=== PATIENT | female | born 1950 | race Caucasian/White ===

== ENCOUNTER 2017-09-22 14:23 | Outpatient (CLI) | payer MEDICARE, OTHER ==
[2017-09-22 13:51] LABS: BASOPHILS % (AUTO) 0.9 %; EOSINOPHILS # (AUTO) 0.1 10^3/uL (0.0-0.7); EOSINOPHILS % (AUTO) 3.4 %; HCT - HEMATOCRIT 41.1 % (37.0-47.0); HGB - HEMOGLOBIN 13.8 g/dL (12.0-16.0); LYMPHOCYTES # (AUTO) 0.9 10^3/uL (1.5-3.5); MEAN CORPUSCULAR HEMOGLOBIN 30.8 pg (27.0-31.0); MEAN CORPUSCULAR HGB CONC 33.4 g/dL (32.0-36.0); MEAN CORPUSCULAR VOLUME 92.1 fL (81.0-99.0); MEAN PLATELET VOLUME 8.8 fL (7.9-10.8); MONOCYTES # (AUTO) 0.3 10^3/uL (0.0-1.0); MONOCYTES % (AUTO) 9.1 %; NEUTROPHILS # (AUTO) 2.1 10^3/uL (1.5-6.6); NEUTROPHILS % (AUTO) 60.6 %; RED BLOOD COUNT 4.47 10^6/uL (4.20-5.40); RED CELL DISTRIBUTION WIDTH 13.5 % (12.0-15.0); UNCORRECTED WHITE BLOOD COUNT 3.4 x10^3/uL; WHITE BLOOD COUNT 3.4 x10^3/uL (4.8-10.8)
[2017-09-22 14:08] LABS: ALBUMIN/GLOBULIN RATIO 1.7 (1.0-2.2); BILIRUBIN,TOTAL 0.8 mg/dL (0.2-1.0); BUN - BLOOD UREA NITROGEN 20 mg/dL (6-20); CALCIUM 9.5 mg/dL (8.5-10.3); CARBON DIOXIDE - CO2 28 mmol/L (21-32); CHLORIDE 101 mmol/L (101-111); CHOL/HDL RATIO 2.5 (<4.4); CHOLESTEROL 240 mg/dL; CREATININE 0.6 mg/dL (0.4-1.0); GFR - MDRD 100 (>89); GLUCOSE 75 mg/dL (70-100); HDL CHOLESTEROL 95 mg/dL; LDL/HDL RATIO 1.4 (<4.4); POTASSIUM 3.8 mmol/L (3.5-5.0); SODIUM 138 mmol/L (135-145); TOTAL PROTEIN 6.8 g/dL (6.7-8.2); TRIGLYCERIDES 65 mg/dL; VLDL CHOLESTEROL 13 mg/dL
== END 2017-09-22 14:24 | disposition home or self-care (01) ==
LOC: LAB.R 14:23
PROVIDERS: ATTEND Physician Assistant Medical
DX: M15.9 Polyosteoarthritis, unspecified (principal); G47.00 Insomnia, unspecified; Z79.899 Other long term (current) drug therapy; M81.0 Age-related osteoporosis without current pathological fracture; Z72.89 Other problems related to lifestyle; Z11.59 Encounter for screening for other viral diseases
CPT/HCPCS: 80053; 80061; 82306; 84443; 85025; 86803

== ENCOUNTER 2017-09-29 11:22 | Outpatient (CLI) | payer MEDICARE, OTHER ==
--- NOTE | 2017-09-29 14:42 | XRAY Report ---
EXAM: CERVICAL SPINE RADIOGRAPHY EXAM DATE: 09/29/2017 12:03 PM. CLINICAL HISTORY: Cervical spasm. Pain upon walking and turning head left since March 2017. COMPARISONS: None. TECHNIQUE: 3 views. FINDINGS: Alignment: Slight accentuation of the lower cervical lordosis. Anterolisthesis of C3 on C4 measuring 1 mm and C6 on C7 measuring 1 mm. Dextroscoliosis of the mid cervical spine and levoscoliosis of the upper thoracic spine. Bones: No acute fracture or bony lesion. Only small portions of the odontoid is visualized and appear s unremarkable. Degenerative osteophyte formation. Disks: Mild disk space narrowing at C2-C3 and C3-C4 with mild to moderate narrowing at C4-C5, C5-C6, C6-C7. Facets: Moderate to marked multilevel cervical facet arthropathy. Soft Tissues: Normal. No prevertebral soft tissue swelling. The visualized lung apices are clear. IMPRESSION: 1. Mild to moderate intervertebral disk degenerative changes of the cervical spine at C4-C5, C5-C6 an d C6-C7. 2. Moderate to marked cervical facet arthropathy. 3. Anterolisthesis of C3 on C4 and C6 on C7, likely due to facet arthropathy. [facility] Referring Provider Line: [phone] SITE ID: [id number]
== END 2017-09-29 11:23 | disposition home or self-care (01) ==
LOC: DI 11:22
PROVIDERS: ATTEND Physician Assistant Medical
DX: M50.321 Other cervical disc degeneration at C4-C5 level (principal); M43.12 Spondylolisthesis, cervical region; M47.892 Other spondylosis, cervical region
CPT/HCPCS: 72040

== ENCOUNTER 2017-10-13 11:01 | Day surgery (SDC) | payer MEDICARE, OTHER ==
[2017-10-13] MEDS ORDERED: LACTATED RINGERS 1,000 ML IV ONE ×2 (11:30→14:33)
[2017-10-13] MEDS ORDERED: fentaNYL 100 MCG/2 ML VIAL IVP ONE (13:39)
[2017-10-13] MEDS ORDERED: GLUCAGON 1 MG/ML VIAL IM ONE (13:39)
[2017-10-13] MEDS ORDERED: MIDAZOLAM 2 MG/2 ML VIAL IVP ONE (13:39)
[2017-10-13 15:06] VITALS: BP 132/57
== END 2017-10-13 11:02 | disposition home or self-care (01) ==
LOC: SDS 11:01
PROVIDERS: ATTEND Surgery
PROC: 0DJD8ZZ Inspection of Lower Intestinal Tract, Via Natural or Artificial Opening Endoscopic (ICD-10-PCS; principal; 2017-10-13 12:15)
DX: Z12.11 Encounter for screening for malignant neoplasm of colon (principal); K62.89 Other specified diseases of anus and rectum
CPT/HCPCS: G0121; J7120

== ENCOUNTER 2017-11-21 13:04 | Outpatient (CLI) | payer MEDICARE, OTHER ==
--- NOTE | 2017-11-23 10:39 | MRI Report ---
EXAM: MRI CERVICAL SPINE WITHOUT CONTRAST EXAM DATE: 11/21/2017 02:10 PM. CLINICAL HISTORY: Cervicalgia, other muscle spasm. COMPARISONS: None. TECHNIQUE: Multiplanar, multisequence T1-weighted and fluid-sensitive sequences of the cervical spine without contrast. Other: None. FINDINGS: Neurologic Structures: The visualized posterior fossa structures are unremarkable. No signal abnormal ity in the visualized spinal cord. No stenosis, no Chiari malformation. Alignment: 10 degrees of dextroscoliosis between C4 and C7. C5-C6 shows 4.3 mm of retrolisthesis. Bone Marrow: No gross fractures or bone lesions. No marrow edema. Benign bone island on the left at C 5. Interspace Levels/Facets: C1-C2: Arthritic changes seen anteriorly. Lateral articulations are relatively normal. No stenosis. C2-C3: Disk dehydration, prominent facets. No central or foraminal stenosis. C3-C4: Disk dehydration, left-sided disk osteophyte complex, moderate to severe left foraminal narrow ing. Prominent facets. Right neural foramina and central canal are normal. C4-C5: Disk osteophyte complex at this level, marginal osteophytosis. Moderate left foraminal stenosi s. Right neural foramina is normal. Central canal is mildly narrow. C5-C6: Retrolisthesis as described, moderate central stenosis. Moderate bilateral foraminal stenosis secondary to disk osteophyte complex and prominent facets. C6-C7: Disk osteophyte complex. Slightly prominent facets. Prominent perineural cystic changes, thoug ht to be benign, series 901 image 11. C7-T1: Mild broad-based disk bulge, right-sided prominent perineural cystic change, benign. Some disk dehydration, no central or foraminal stenosis. Musculature: Moderate fatty atrophy of the multifidus muscle is seen. Other: The paravertebral and prevertebral soft tissues are normal. IMPRESSION: 1. Spinal cord is unremarkable. Bones and marrow show no fractures. No erosive or destructive changes . Benign bone island on the left side at C5. Moderate fatty atrophy of the multifidus muscle is seen. 2. C2-C3 shows some disk dehydration, prominent facets. No central or foraminal stenosis. 3. C3-C4 shows disk dehydration. Left-sided disk osteophyte complex with moderate to severe left fora osmar narrowing. Prominent facets. 4. C4-C5 central disk osteophyte complex creating moderate left foraminal stenosis. 5. C5-C6 shows retrolisthesis, moderate central stenosis and mild bilateral foraminal stenosis. 6. C6-C7 shows disk osteophyte complex, prominent perineural cystic changes. 7. C7-T1 shows a mild broad-based disk bulge. Right-sided prominent perineural cystic change, benign. No central or foraminal stenosis. [facility] Referring Provider Line: [phone] SITE ID: [id number]
== END 2017-11-21 13:05 | disposition home or self-care (01) ==
LOC: DI 13:04
PROVIDERS: ATTEND Physician Assistant Medical
DX: M50.31 Other cervical disc degeneration, high cervical region (principal); M43.12 Spondylolisthesis, cervical region
CPT/HCPCS: 72141

== ENCOUNTER 2018-02-12 13:03 | Outpatient (CLI) | payer MEDICARE, OTHER ==
--- NOTE | 2018-02-15 14:17 | DEXA Report ---
DEXA SCAN: 02/12/2018 CLINICAL INDICATION: Postmenopausal. TECHNIQUE: Dual energy x-ray absorptiometry (DXA) was performed on a GI-View system. Regions measured are the AP spine, femoral neck, and, if needed, forearm. COMPARISON: None. In accordance with the International Society for Clinical Densitometry (ISCD) guidelines, data from previous exams may be reanalyzed using current recommendations and techniques. This is done to allow a more accurate basis for comparison with the current study. FINDINGS Data for the lumbar spine is as follows: REGION BMD (g/cm/cm) T-SCORE Z-SCORE L1 0.935 -1.6 -0.2 L2 1.050 -1.2 0.1 L3 1.107 -0.8 0.6 L4 1.044 -1.3 0.1 L1-L4 1.039 -1.2 0.2 NOTE: All evaluable vertebrae are used for classification. Data for the hip is as follows: REGION BMD (g/cm/cm) T-SCORE Z-SCORE Neck 0.783 -1.8 -0.4 TOTAL 0.729 -2.2 -1.1 NOTE: The femoral neck or total proximal femur, whichever is lowest, is used for classification. IMPRESSION 1. THE WHO CLASSIFICATION BASED ON THE INTERNATIONAL REFERENCE STANDARD IS OSTEOPENIA. FRACTURE RISK IS INCREASED. 2. RIGHT HIP EVALUATION PERFORMED, DUE TO LEFT HIP REPLACEMENT. RECOMMENDATION: Patients with diagnosis of osteoporosis or osteopenia should have regular bone mineral density assessment. For those eligible for Medicare, routine testing is allowed once every 2 years. Testing frequency can be increased for patients who have rapidly progressing disease or for those who are receiving medical therapy to restore bone mass. COMMENT World Health Organization (WHO) definitions for osteoporosis and osteopenia: NORMAL BMD: T-score at 1.0 or higher, fracture risk is low. OSTEOPENIA BMD: T-score between 1.0 and -2.5, fracture risk is increased. OSTEOPOROSIS BMD: T-score at 2.5 or lower, fracture risk high. National Osteoporosis Foundation recommends: 1. Obtain adequate dietary calcium (at least 1200 mg per day) and vitamin D ( 400-800 international units per day). 2. Participate, as appropriate, in regular weightbearing and muscle- strengthening exercise. 3. Avoid tobacco use and reduce alcohol and caffeine intake. 4. For more detailed information see the website at www.NOF.org. TD: 02/13/2018 07:05 MTDWalker
== END 2018-02-12 13:04 | disposition home or self-care (01) ==
LOC: DI 13:03
PROVIDERS: ATTEND Physician Assistant Medical
DX: M81.0 Age-related osteoporosis without current pathological fracture (principal)
CPT/HCPCS: 36415; 77080; 82306

== ENCOUNTER 2018-06-14 08:00 | Outpatient (CLI) | payer MEDICARE, OTHER | END 2018-06-14 08:01 | disposition home or self-care (01) | LOC: LAB.R 08:00 | PROVIDERS: ATTEND Registered Nurse | DX: Z11.3 Encounter for screening for infections with a predominantly sexual mode of transmission (principal) | CPT/HCPCS: 87491; 87591 ==

== ENCOUNTER 2018-06-14 14:37 | Outpatient (CLI) | payer MEDICARE, OTHER ==
[2018-06-14 15:50] LABS: HB2 TOTAL 14.1 g/dL; HEMOGLOBIN A1C 0.46 g/dL; HEMOGLOBIN A1C % 5.1 % (4.6-6.2)
[2018-06-15 13:04] LABS: HEPATITIS C ANTIBODY NON-REACTIVE (NON-REACTIVE)
[2018-06-15 14:15] LABS: HIV AG/AB 4TH GEN NON-REACTIVE (NON-REACTIVE)
== END 2018-06-14 14:38 | disposition home or self-care (01) ==
LOC: LAB 14:37
PROVIDERS: ATTEND Registered Nurse
DX: Z01.419 Encounter for gynecological examination (general) (routine) without abnormal findings (principal); Z11.3 Encounter for screening for infections with a predominantly sexual mode of transmission
CPT/HCPCS: 36415; 81599; 83036; 84443; 86803; G0475; 87389; 87491; 87591

== ENCOUNTER 2018-10-21 11:51 | Outpatient (CLI) | payer MEDICARE, OTHER ==
[2018-10-21 19:30] LABS: BASOPHILS % (AUTO) 0.6 %; EOSINOPHILS # (AUTO) 0.2 10^3/uL (0.0-0.7); EOSINOPHILS % (AUTO) 3.8 %; HGB - HEMOGLOBIN 13.6 g/dL (12.0-16.0); LYMPHOCYTES % (AUTO) 22.1 %; MEAN CORPUSCULAR HEMOGLOBIN 30.9 pg (27.0-31.0); MEAN CORPUSCULAR HGB CONC 32.9 g/dL (32.0-36.0); MEAN CORPUSCULAR VOLUME 93.7 fL (81.0-99.0); MEAN PLATELET VOLUME 8.8 fL (7.9-10.8); MONOCYTES # (AUTO) 0.4 10^3/uL (0.0-1.0); NEUTROPHILS % (AUTO) 65.5 %; PLT - PLATELET COUNT 233 10^3/uL (130-450); RED BLOOD COUNT 4.42 10^6/uL (4.20-5.40); RED CELL DISTRIBUTION WIDTH 13.7 % (12.0-15.0); WHITE BLOOD COUNT 4.5 x10^3/uL (4.8-10.8)
[2018-10-21 19:38] LABS: ALBUMIN 4.5 g/dL (3.2-5.5); ALBUMIN/GLOBULIN RATIO 2.1 (1.0-2.2); ALKALINE PHOSPHATASE 47 IU/L (42-121); ALT ALANINE AMINOTRANSFERASE 20 IU/L (10-60); AST ASPARTATE AMINOTRANSFERASE 24 IU/L (10-42); BILIRUBIN,TOTAL 0.9 mg/dL (0.2-1.0); BUN - BLOOD UREA NITROGEN 18 mg/dL (6-20); CALCIUM 9.4 mg/dL (8.5-10.3); CARBON DIOXIDE - CO2 29 mmol/L (21-32); CHLORIDE 103 mmol/L (101-111); CHOL/HDL RATIO 2.5 (<4.4); CHOLESTEROL 219 mg/dL; CREATININE 0.6 mg/dL (0.4-1.0); GFR - MDRD 99 (>89); GLUCOSE 92 mg/dL (70-100); HDL CHOLESTEROL 89 mg/dL; LDL CHOLESTEROL,CALCULATED 122 mg/dL; LDL/HDL RATIO 1.4 (<4.4); SODIUM 138 mmol/L (135-145); TOTAL PROTEIN 6.6 g/dL (6.7-8.2); VLDL CHOLESTEROL 8 mg/dL
== END 2018-10-21 23:59 | disposition home or self-care (01) ==
LOC: LAB.N 11:51
PROVIDERS: ATTEND Physician Assistant Medical
DX: M81.0 Age-related osteoporosis without current pathological fracture (principal); Z79.899 Other long term (current) drug therapy; D72.819 Decreased white blood cell count, unspecified; E78.2 Mixed hyperlipidemia
CPT/HCPCS: 36415; 80053; 80061; 82306; 83721; 84443; 85025

== ENCOUNTER 2018-11-22 13:14 | Outpatient (CLI) | payer MEDICARE, OTHER ==
--- NOTE | 2018-11-23 08:49 | Mammography Report ---
Reason: MAMMOGRAPHIC SCREENING FOR BREAST CANCER Procedure Date: 11/22/2018 Accession Number: [id number] / [id number] Procedure: [facility] - Screening Mammo w/Lebron CPT Code: FULL RESULT: EXAM: Screening Mammo w/Lebron DATE: 11/22/2018 1:55 PM CLINICAL HISTORY: Screening encounter. History of late childbearing. TECHNIQUE: Bilateral CC, laterally exaggerated CC, MLO views were obtained. COMPARISON: 09/30/2016 through 06/24/2010. FINDINGS: The breasts demonstrate scattered fibroglandular densities bilaterally. No suspicious masses, clustered microcalcifications, or regions of architectural distortion are identified. IMPRESSION: Negative examination RECOMMENDATION: Routine annual screening unless otherwise clinically indicated. BIRADS CATEGORY 1: Negative STANDARD QUALIFYING STATEMENTS: 1. This examination was not reviewed with the aid of Computer-Aided Detection (CAD). 2. A negative or benign imaging report should not preclude biopsy if clinically suspicious findings are present. 3. Dense breasts may obscure an underlying neoplasm. 4. This examination was reviewed with the aid of 3D breast imaging (tomosynthesis).
== END 2018-11-22 13:15 | disposition home or self-care (01) ==
LOC: DI 13:14
PROVIDERS: ATTEND Physician Assistant Medical
DX: Z12.31 Encounter for screening mammogram for malignant neoplasm of breast (principal)
CPT/HCPCS: 77063; 77067